=== PATIENT | female | born 1950 | race Caucasian/White ===

== ENCOUNTER → 2017-10-10 | Outpatient (CLI) | payer MEDICARE, OTHER ==
[~2017-10-10] MED LIST: ADVIL200 MG PO; ASPIRIN 32325 MG/TA1 PO; CHAMOMILE PO; FISH OIL 1000MG1 CAP PO; KLOR-CON M2020 MEQ PO; LIPITOR 10MG10 MG PO; OSCAL 500 TAB500 MG PO; VITAMIN D1000 IU PO; ZESTORETIC 12.51 TA1 PO
== END ==
LOC: MC.RAD 10:00
DX: Z12.31 Encounter for screening mammogram for malignant neoplasm of breast (principal)

== ENCOUNTER → 2018-11-26 | Outpatient (CLI) | payer MEDICARE, OTHER | LOC: MC.RAD 13:30 | DX: Z12.31 Encounter for screening mammogram for malignant neoplasm of breast (principal) ==

== ENCOUNTER → 2019-12-31 | Outpatient (CLI) | payer MEDICARE, OTHER | LOC: MC.RAD 09:25 | DX: Z12.31 Encounter for screening mammogram for malignant neoplasm of breast (principal) ==

== ENCOUNTER 2020-09-17 13:00 | Outpatient (RCR) | payer MEDICARE, OTHER ==
[2020-09-07 14:21] LABS: MEAN CELL VOLUME 68 fl (80.0-100.0); MEAN CORPUSCULAR HGB CONC 28 g/dl (33.0-37.0); MEAN PLATELET VOLUME 9.8 fl (7.4-10.4); PLATELET COUNT 427 K/mm3 (130-400); RED BLOOD COUNT 4.33 M/mm3 (4.10-5.30); REDCELL DISTRIBUTION WIDTH-CV 21.4 % (11.5-14.5)
[2020-09-07 14:26] LABS: HEMATOCRIT 29.5 % (37.0-47.0); HEMOGLOBIN 8.1 g/dl (12.5-16.0); IRON,SERUM 12 ug/dL (35-150); MEAN CORPUSCULAR HEMOGLOBIN 19 pg (27.0-31.0)
[2020-09-07 14:28] VITALS: BP 131/60; PULSE 72; TEMP 98.1
[2020-09-07 14:35] LABS: TOTAL IRON BINDING CAPACITY 452 ug/dL (265-497)
[2020-09-10 11:18] VITALS: BP 129/55; PULSE 79; TEMP 97.8
[2020-09-14 14:24] VITALS: BP 125/56; PULSE 80; TEMP 98.6
[~2020-09-17] VITALS: Ht 167.6 cm; Wt 94.8 kg
[~2020-09-17 13:00] MED LIST changes: +PRILOSEC10 MG PO; +PROTONIX 40MG T40 MG PO
[2020-09-17 13:23] VITALS: BP 141/75; PULSE 89; TEMP 97.3
== END 2020-09-17 14:30 | disposition home or self-care (01) ==
LOC: EUO 13:00
PROVIDERS: Internal Medicine Gastroenterology
DX: D50.9 Iron deficiency anemia, unspecified (principal)
CPT/HCPCS: J2916

== ENCOUNTER → 2021-01-01 | Outpatient (CLI) | payer MEDICARE | LOC: MC.RAD 09:22 | DX: Z12.31 Encounter for screening mammogram for malignant neoplasm of breast (principal) ==

== ENCOUNTER → 2022-01-24 | Outpatient (CLI) | payer MEDICARE, OTHER | LOC: MC.RAD 14:24 | DX: Z12.31 Encounter for screening mammogram for malignant neoplasm of breast (principal) ==

== ENCOUNTER 2024-01-09 08:15 | Outpatient (RCR) | payer MEDICARE, OTHER | END 2024-01-18 | disposition home or self-care (01) | LOC: PT.GENESIS | DX: M54.50 Low back pain, unspecified (principal); M25.551 Pain in right hip ==

== ENCOUNTER → 2024-03-19 | Outpatient (CLI) | payer MEDICARE, OTHER | LOC: MC.RAD 09:25 | DX: Z12.31 Encounter for screening mammogram for malignant neoplasm of breast (principal) ==

== ENCOUNTER 2024-07-16 10:25 | Observation (INO) | payer MEDICARE, OTHER ==
[~2024-07-16] VITALS: Ht 165.1 cm; Wt 100.5 kg
[2024-07-16] VITALS (11 sets, daily range): BP systolic 118–158; BP diastolic 55–100; PULSE 62–77; TEMP 97.7
[~2024-07-16 10:25] MED LIST changes: +LR 1,000 ML IV SCH
[2024-07-16] MEDS ORDERED: TRELEGY ELLIPT1 EACH IH (11:36)
[2024-07-16 11:48] LABS: BASO # 0.1 K/mm3 (0.0-0.2); BASO % 0.8 % (0.0-2.0); EOS # 0.3 K/mm3 (0.0-0.7); EOS % 4.9 % (0.0-4.0); GRAN # 3.2 K/mm3 (1.4-6.5); GRAN % 54.6 % (42.2-75.2); HEMATOCRIT 44.9 % (37.0-47.0); HEMOGLOBIN 15.2 g/dl (12.5-16.0); LYMPH # 1.9 K/mm3 (1.2-3.4); LYMPH % 32.3 % (20.0-51.0); MEAN CELL VOLUME 93 fl (80.0-100.0); MEAN CORPUSCULAR HEMOGLOBIN 31 pg (27-31); MEAN CORPUSCULAR HGB CONC 34 g/dl (33.0-37.0); MEAN PLATELET VOLUME 10.3 fl (7.4-10.4); MONO # 0.4 K/mm3 (0.1-0.6); MONO % 7.2 % (1.7-9.3); PLATELET COUNT 212 K/mm3 (130-400); RED BLOOD COUNT 4.84 M/mm3 (4.10-5.30); REDCELL DISTRIBUTION WIDTH-CV 13.5 % (11.5-14.5)
[2024-07-16 11:54] LABS: CALCIUM 9.5 mg/dL (8.4-10.2); CREATININE, serum 0.81 mg/dL (0.57-1.11); POTASSIUM 4.2 mEq/L (3.5-4.5)
[2024-07-16] MEDS ORDERED: Rocuronium 50 MG/5 ML Multi-Dose VIAL ONE (12:01)
[2024-07-16] MEDS ORDERED: Lidocaine PF 2% (20 MG/ML) 5 ML VIAL ONE (12:01)
[2024-07-16] MEDS ORDERED: fentaNYL 50 MCG/ML 5 ML VIAL ONE (12:01)
[2024-07-16] MEDS ORDERED: dexAMETHasone 10 MG/ML VIAL ONE (12:46)
[2024-07-16] MEDS ORDERED: Ondansetron 4 MG/2 ML VIAL ONE (12:46)
[2024-07-16] MEDS ORDERED: Topical Skin Adhesive 1 EACH (1 ML) TOP ONE (12:51)
[2024-07-16] MEDS ORDERED: droPERidol 2.5 MG/ML 2 ML VIAL IV PRN (13:15)
[2024-07-16] MEDS ORDERED: Morphine 2 MG/1 ML VIAL [PACU/SDC ONLY] IV PRN (13:15)
[2024-07-16] MEDS ORDERED: fentaNYL 50 MCG/ML 1 ML SYRINGE/VIAL [PACU/SDC ONLY] IV PRN (13:15)
[2024-07-16] MEDS ORDERED: Meperidine 50 MG/ML 1 ML VIAL IV PRN (13:15)
[2024-07-16] MEDS ORDERED: Ondansetron 4 MG/2 ML VIAL IV PRN ×2 (13:15→15:00)
[2024-07-16] MEDS ORDERED: HYDROmorphone 1 MG/1 ML SYRINGE [PACU/SDC ONLY] IV PRN (13:15)
[2024-07-16] MEDS ORDERED: ePHEDrine 50 MG/ML VIAL ONE (13:25)
[2024-07-16] MEDS ORDERED: Neostigmine 1 MG/ML 10 ML Multi-Dose Vial ONE (14:23)
[2024-07-16] MEDS ORDERED: Glycopyrrolate 0.2 MG/ML 1 ML VIAL ONE (14:23)
[2024-07-16] MEDS ORDERED: LR 1,000 ML IV ONE (14:30)
[2024-07-16] MEDS ORDERED: NS 10 ML IV ONE (14:48)
[2024-07-16] MEDS ORDERED: Ketorolac 15 MG/ML VIAL IV SCH (15:00)
[2024-07-16] MEDS ORDERED: LR 1,000 ML IV SCH (15:00)
[2024-07-16] MEDS ORDERED: HYDROmorphone 0.5 MG/0.5 ML SYRINGE IV PRN (15:00)
[2024-07-16] MEDS ORDERED: oxyCODONE 5 MG TAB PO PRN (15:00)
[2024-07-16] MEDS ORDERED: Naloxone 0.4 MG/ML VIAL IV PRN (15:00)
[2024-07-16] MEDS ORDERED: Acetaminophen 500 MG TAB PO SCH (15:53)
--- NOTE | 2024-07-16 16:00 | NUR ---
pt admitted to room from pacu, daughter at bedside. vss. pt still drowsy but easily arousable. denies abdominal pain but reports pain in her shoulder from gas pains. x6 lap sites are cdi. pt on 3L nasal cannula. scds to ble. pt tolerating ice chips. med rec and admission assessment complete. IV to left hand is patent. oriented pt and daughter to room. call light in reach.
[2024-07-16] MEDS ORDERED: Gabapentin 100 MG CAP PO ONE (18:53)
--- NOTE | 2024-07-16 21:30 | NUR ---
Patient assessed at this time, see shift assessment, denies pain at at this time, with IV infusing well on left hand, with 6 lap sites skin glued edges well approximated, denies further needs, call light and personal items within reach, will continue to monitor.
[2024-07-17] VITALS (12 sets, daily range): BP systolic 137–157; BP diastolic 80–94; PULSE 71–94; TEMP 97.6–98.2
--- NOTE | 2024-07-17 00:30 | NUR ---
Patient just done ambulating the hallway with standby assist.
--- NOTE | 2024-07-17 00:32 | NUR ---
Patient just done ambulating the hallway with standby assist and reports she's having pain, medicated with oxycodone and scheduled tylenol.
--- NOTE | 2024-07-17 00:42 | NUR ---
Patient complained of pain 6-05/29, medicated with oxycodone, few minutes after she reports she's nauseated, IV zofran given.
--- NOTE | 2024-07-17 05:00 | NUR ---
Reports she passed gas.
[2024-07-17 06:23] LABS: BASO % 0.1 % (0.0-2.0); EOS % 0.2 % (0.0-4.0); GRAN # 13.9 K/mm3 (1.4-6.5); GRAN % 84.9 % (42.2-75.2); HEMATOCRIT 42.1 % (37.0-47.0); HEMOGLOBIN 14.5 g/dl (12.5-16.0); LYMPH # 1.4 K/mm3 (1.2-3.4); LYMPH % 8.8 % (20.0-51.0); MEAN CELL VOLUME 91 fl (80.0-100.0); MEAN CORPUSCULAR HEMOGLOBIN 32 pg (27-31); MEAN CORPUSCULAR HGB CONC 34 g/dl (33.0-37.0); MEAN PLATELET VOLUME 10.3 fl (7.4-10.4); MONO # 0.9 K/mm3 (0.1-0.6); MONO % 5.6 % (1.7-9.3); PLATELET COUNT 221 K/mm3 (130-400); RED BLOOD COUNT 4.61 M/mm3 (4.10-5.30); REDCELL DISTRIBUTION WIDTH-CV 13.4 % (11.5-14.5)
[2024-07-17 06:44] LABS: CALCIUM 8.8 mg/dL (8.4-10.2); CREATININE, serum 0.81 mg/dL (0.57-1.11); MAGNESIUM 1.9 mg/dL (1.6-2.6); PHOSPHOROUS 3.3 mg/dL (2.3-4.7); POTASSIUM 4.1 mEq/L (3.5-4.5)
--- NOTE | 2024-07-17 07:00 | NUR ---
REPORT RECEIVED FROM DONNY GARCIA. PT RESTING IN BED, FLUIDS INFUSING ORDERED. SIX LAP SITES TO ABD NOTED TO BE CDI, SKIN GLUE IN PLACE. PT DENIES PAIN, DOES C/O SOME NAUSEA. BOWEL SIGNS HYPOACTIVE TO ALL QUARDRANTS. PT IS ALERT AND ORIENTED, CALL LIGHT IN REACH.
[2024-07-17] MEDS ORDERED: Omeprazole 10 MG **** subs to Pantoprazole 20 MG PO SCH (10:12)
[2024-07-17] MEDS ORDERED: Fluticasone/Umeclidinium/Vilanterol **** subs to Budesonide + Umeclid/Vilant IH SCH (10:12)
--- NOTE | 2024-07-17 10:23 | NUR ---
D: Truck Assembler stopped by room on rounds. A: Pt was resting and content with daughter in the room. Pt has no needs right now. Pt appreciated the visit. P: Truck Assembler informed pt that if she needed anything from the barrel loader area to let her nurse know. Truck Assembler will follow up as needed.
--- NOTE | 2024-07-17 10:23 | NUR ---
chore worker met with pt and her daughter, Valeria Baca [phone] to discuss discharge planning. She reports to live alone in [place]. She sees Dr. Lawson for PCP needs and obtains medications from [facility] with no difficulties. She confirmed her insurance as Medicare A/B and [employer]. She is independent with ADLS and uses no DME. She reports her daughter is DPOA-HC and her and daughter are unsure where a copy is as it is from 2012. HOWARD notes DONNY Zapata arrived and encouraged pt to ambulate today. Discharge Plan: home
--- NOTE | 2024-07-17 17:25 | NUR ---
Patient awake, alert and oriented. States she has some abdominal discomfort but feels much better now than she did earlier. Denies nausea. Able to tolerate small amounts of clear liquids, states she has not attempted eating full liquids yet. In bed, bed in lowest position with call light within reach.
[2024-07-17] MEDS ORDERED: Budesonide Neb Susp 0.5 MG/2 ML AMP IH SCH (19:00)
--- NOTE | 2024-07-17 21:00 | NUR ---
Patient reports she's doing better than last night, complaining of headache and it's dull, denies nausea or vomiting, 6 lap sites edges well approximated, passing gas, wants to go slow with her clear liquid diet and not ready for a full liquid diet, denies further needs, call light and personal items within reach, will continue to monitor.
[2024-07-18] VITALS (7 sets, daily range): BP systolic 127–161; BP diastolic 84–93; PULSE 78–84; TEMP 97.4–98.1
--- NOTE | 2024-07-18 05:49 | NUR ---
Patient complained of nausea at this time, medicated with IV zofran, denies further needs.
--- NOTE | 2024-07-18 08:00 | NUR ---
PATIENT SITTING IN CHAIR EATING BREAKFAST. ALERT AND ORIENTED, DAUGHTER AT BEDSIDE. PATIENT C/O NAUSEA, THINKING IT MAY BE RELATED TO PAIN MEDICATION. PATIENT DENIES ABDOMINAL PAIN, BUT STATES SHE HAS A MC[place]H AND BACK PAIN RELATED TO GAS PAIN. PATIENT IS BELCHING AFTER EATING, AND BOWEL SOUNDS ARE HYPOACTIVE. PATIENT WANTED TO TAKE SCHEDULED PAIN MEDICATION. THIS RN ADMINISTERED AN ANTIEMETIC ALONG WITH SCHEDULED PAIN MEDICATION. LAP SITES X6 ARE CDI. DENIES FURTHER NEEDS OR CONCERNS AT THIS TIME. ALL NEEDS MET AT THIS VISIT. CALL LIGHT WITHIN REACH.
[2024-07-18] MEDS ORDERED: Umeclidinium/Vilanterol 62.5-25 MCG INHALATION/INHALER IH SCH (09:00)
[2024-07-18] MEDS ORDERED: Atorvastatin 10 MG TAB PO SCH (09:00)
--- NOTE | 2024-07-18 09:30 | NUR ---
PATIENT BACK IN BED. RESTING WITH EYES CLOSED UPON ARRIVAL. DENIES PAIN OR NAUSEA AT THIS TIME. ATE A FEW BITES OF BREAKFAST. DAUGHTER AT BEDSIDE. CALL LIGHT WITHIN REACH. WILL MONITOR
[2024-07-18] MEDS ORDERED: REGLAN 10MG10 MG/TAB PO (14:49)
[2024-07-18] MEDS ORDERED: ZOFRAN ODT4 MG PO (14:49)
[2024-07-18] MEDS ORDERED: ROXICODONE 55 MG/TAB PO (14:50)
--- NOTE | 2024-07-18 15:30 | NUR ---
THIS RN PROVIDED PATIENT WITH DISCHARGE EDUCATION AND INSTRUCTIONS. ALL QUESTIONS ANSWERED. PATIENT ESCORTED OFF UNIT VIA W/C BY THIS RN AT APPROX 1528. ALL BELONGINGS WITH PATIENT.
== END 2024-07-18 15:28 | disposition home or self-care (01) ==
LOC: SDCO 10:25 → SURG 16:02 → SDCO 07-17 14:14 → SURG 07-17 14:15
PROVIDERS: ADMIT Surgery
DX: K44.9 Diaphragmatic hernia without obstruction or gangrene (principal); K21.9 Gastro-esophageal reflux disease without esophagitis; D45 Polycythemia vera; K27.9 Peptic ulcer, site unspecified, unspecified as acute or chronic, without hemorrhage or perforation
CPT/HCPCS: OP; A9284; G0378; J0665; J0690; J1100; J1170; J1650; J1885; J2405; J2704; J2710; J2765; J3010; J7120